=== PATIENT | female | born 1995 | race African-American/Black ===

== ENCOUNTER 2017-07-24 03:26 | Emergency (ER) | payer SELFPAY ==
[2017-07-24] MEDS ORDERED: diphenhydrAMINE 50 MG/ML VIAL ONE (04:04)
[2017-07-24] MEDS ORDERED: Metoclopramide HCl 10 MG/2 ML VIAL ONE (04:04)
[2017-07-24 04:58] LABS: ALT (SGPT) 14 U/L (8-55); AST (SGOT) 21 U/L (5-34); Alkaline Phosphatase 76 U/L (40-150); Anion Gap 10 mmol/L (10-20); BUN (Urea Nitrogen) 9 mg/dL (7.0-18.7); Bilirubin, Total 0.7 mg/dL (0.2-1.2); Calc. Creatinine Clearance 0 mL/min (70-130); Carbon Dioxide 26 mmol/L (22-29); Chloride 105 mmol/L (98-107); Estimated GFR-MDRD Greater than 90; Globulin 3.3 g/dL (2.4-3.5); Lipase 4 U/L (8-78); Protein, Total 6.9 g/dL (6.0-8.3)
[2017-07-24 05:17] LABS: Band 14 % (5-11); Hematocrit 44.8 % (36.0-47.0); Mean Platelet Volume 6.8 fL (7.4-10.4); Neutrophil 74 % (42-75); Reactive Lymphocytes 2 % (0-10); Red Blood Cell (RBC) Count 4.99 mill/uL (4.20-5.40); Vacuoles SLIGHT; White Blood Cell (WBC) Count 21.4 thou/uL (4.8-10.8)
--- NOTE | 2017-07-24 08:30 | CT ---
PRELIMINARY REPORT/[facility]/EMERGENCY AFTER HOURS PROCEDURE: EXAM: CT Abdomen and Pelvis With Intravenous Contrast EXAM DATE/TIME: Exam ordered 07/24/2017 5:40 AM CLINICAL HISTORY: 21 years old, female; Pain; Abdominal pain; Generalized; Patient HX: 21 year old female with pmh of a nxiety presents with n/v/d for 4 hours. Vomited undigested food and bile. Ate take out pizza last nig ht-her kids are not sick and ate same food. No abdominal pain. Lmp 07/11/17. No uri sxs, no chest magdaleno n, SOB, or fever. TECHNIQUE: Axial computed tomography images of the abdomen and pelvis with intravenous contrast. Coronal reformatted images were created and reviewed. COMPARISON: No relevant prior studies available. FINDINGS: Lower thorax: The visualized portions of the lung bases are normal. ABDOMEN: Liver: There are no focal liver lesions present. Gallbladder and bile ducts: The gallbladder is normal. There is no evidence of biliary ductal dilatio n. No calcified stones. Pancreas: The pancreas is normal. No ductal dilation. Spleen: The spleen is normal. Adrenals: The adrenal glands are normal. Kidneys and ureters: Normal. No solid mass. No hydronephrosis. Stomach and bowel: The small and large bowel is filled with fluid suspicious for enterocolitis. The s tomach is normal. The duodenum is unremarkable. Appendix: A normal appendix is identified. PELVIS: Bladder: Normal. No mass. Reproductive: The uterus is normal. ABDOMEN and PELVIS: Intraperitoneal space: Normal. No free air. No significant fluid collection. Bones/joints: No acute fracture. No dislocation. Soft tissues: Normal. Vasculature: Normal. No abdominal aortic aneurysm. Lymph nodes: Normal. No enlarged lymph nodes. IMPRESSION: The small and large bowel is filled with fluid suspicious for enterocolitis. Thank you for allowing us to participate in the care of your patient. Dictated and Authenticated by: Byron Lehman MD 07/24/2017 6:03 AM Central Time ([place] & [place]) FINAL REPORT CT ABDOMEN AND PELVIS WITH IV CONTRAST: I agree with the preliminary report given by Dr. Byron Lehman of [employer]. POS: [facility]
[2017-07-24] MEDS ORDERED: ISOVUE-370 76%-LOCM 1 ML ONE (09:37)
== END 2017-07-24 07:17 | disposition home or self-care (01) ==
LOC: ERS 03:26
DX: R11.2 Nausea with vomiting, unspecified (principal); R19.7 Diarrhea, unspecified; I10 Essential (primary) hypertension
CPT/HCPCS: 74177; 80053; 83690; 84703; 85025; 96361; 96365; 96375; J1200; J2765

== ENCOUNTER 2017-07-25 12:11 | Emergency (ER) | payer SELFPAY ==
[2017-07-25] MEDS ORDERED: Promethazine HCl 25 MG/ML VIAL ONE (14:01)
[2017-07-25 14:20] LABS: Bilirubin Negative (Negative); Blood, Urine Large (Negative); Glucose, Urine (Dipstick) Negative (Negative); Ketone, Urine Negative (Negative); Nitrite Negative (Negative); Protein, Urine (Dipstick) Negative (Neg-Trace); Urobilinogen 0.2 mg/dL (0.2-1.0)
[2017-07-25 14:21] LABS: Bacteria/HPF 1+ HPF (None Seen); Hyaline Casts/LPF 0-3 HYALINE CAST LPF (0-3 Hyaline)
== END 2017-07-25 15:21 | disposition home or self-care (01) ==
LOC: ERS 12:11
DX: N39.0 Urinary tract infection, site not specified (principal); I10 Essential (primary) hypertension
CPT/HCPCS: 81003; 81015; 87086; 96372; J2550

== ENCOUNTER 2017-09-18 19:10 | Emergency (ER) | payer SELFPAY, OTHER | END 2017-09-18 20:19 | disposition left against medical advice (07) | LOC: ERS 19:10 | DX: Z53.21 Procedure and treatment not carried out due to patient leaving prior to being seen by health care provider (principal) ==

== ENCOUNTER 2019-05-06 08:19 | Emergency (ER) | payer OTHER, SELFPAY ==
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
[2019-05-06] MEDS ORDERED: Ondansetron PF 4 MG/2 ML Vial ONE (08:41)
[2019-05-06] MEDS ORDERED: Fentanyl 100 MCG/2 ML VIAL ONE (08:41)
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
[2019-05-06] MEDS ORDERED: Bacitracin 1 PK ONE (09:58)
== END 2019-05-06 10:34 | disposition home or self-care (01) ==
LOC: ERS 08:19
DX: S20.219A Contusion of unspecified front wall of thorax, initial encounter (principal); V47.9XXA Unspecified car occupant injured in collision with fixed or stationary object in traffic accident, initial encounter
CPT/HCPCS: 70450; 71260; 72125; 74177; 96374; 96375; G0390; J2405; J3010

== ENCOUNTER 2020-01-06 22:21 | Emergency (ER) | payer OTHER, SELFPAY ==
[2020-01-06] MEDS ORDERED: Adacel (T-DAP) 0.5 ML SYRINGE ONE (23:57)
== END 2020-01-07 00:46 | disposition home or self-care (01) ==
LOC: ERS 22:21
DX: L02.411 Cutaneous abscess of right axilla (principal)
CPT/HCPCS: 10060; 90471; 90715

== ENCOUNTER 2020-03-19 07:48 | Emergency (ER) | payer OTHER, SELFPAY ==
[2020-03-20 13:55] LABS: SARS-CoV-2 MS2 Positive; SARS-CoV-2 N Gene Negative; SARS-CoV-2 S Gene Negative; SARS-CoV-2 by NAA Not Detected (NotDetected); SARS-CoV-2 orf1ab Negative
== END 2020-03-19 09:22 | disposition home or self-care (01) ==
LOC: ERS 07:48
DX: R00.0 Tachycardia, unspecified (principal); R50.9 Fever, unspecified; R43.8 Other disturbances of smell and taste; Z20.828 Contact with and (suspected) exposure to other viral communicable diseases
CPT/HCPCS: 87635; 99284; U0003

== ENCOUNTER 2022-02-04 11:55 | Emergency (ER) | payer OTHER, SELFPAY | END 2022-02-04 14:26 | disposition home or self-care (01) | LOC: ERS 11:55 | DX: M79.661 Pain in right lower leg (principal) ==